=== PATIENT | male | born 1950 | race Caucasian/White ===

== ENCOUNTER 2018-04-17 17:41 | Outpatient (CLI) | payer MEDICARE, BC ==
--- NOTE | 2018-04-17 19:26 | RAD ---
CHEST: 04/17/18 PA and lateral views are submitted and compared with the prior study of 08/14/14 from [facility]. The heart is normal in size. There is no vascular congestion or effusions. No pulmonary masses or foc al pulmonary infiltrates were seen. The trachea is midline. The mediastinum appears normal. IMPRESSION: No significant finding. POS: HOME
== END 2018-04-17 17:42 | disposition home or self-care (01) ==
LOC: SCSRAD 17:41
PROVIDERS: ATTEND Family Medicine
DX: F17.200 Nicotine dependence, unspecified, uncomplicated (principal); R05 Cough; R63.4 Abnormal weight loss; R11.2 Nausea with vomiting, unspecified
CPT/HCPCS: 36415; 71046; 80053; 82378; 84153; 85025

== ENCOUNTER 2019-05-22 09:27 | Outpatient (CLI) | payer MEDICARE, BC ==
--- NOTE | 2019-05-22 10:23 | CT ---
EXAM: CT chest without contrast per low-dose cancer screening protocol HISTORY: History of smoking and nicotine dependence COMPARISON: None TECHNIQUE: Multiple contiguous axial images were obtained in a CT of the chest without contrast per l ow-dose cancer screening protocol. Sagittal and coronal reformats were performed. FINDINGS: Pulmonary nodules: There is a 4 mm nodule on image 130 of 260 in the right middle lobe. No other sign ificant pulmonary nodules are seen. A calcified granuloma is seen along the left major fissure. No focal infiltrates are seen. Emphysematous changes are seen in the lungs. Pleural space: No pneumothorax or pleural effusion are seen. Heart: The heart is normal in size. Mediastinum: No hilar or mediastinal lymphadenopathy appreciated on this limited noncontrast examinat ion. Bones: Degenerative changes in the spine.. Visualized subdiaphragmatic structures: Unremarkable. IMPRESSION: Lung RADS category 3-probably benign. A follow-up low-dose chest CT in 6 months is recommended to ens ure stability.
--- NOTE | 2019-05-22 12:28 | ULT ---
ABDOMINAL AORTIC ULTRASOUND: HISTORY: Abdominal aortic aneurysm screening. FINDINGS: Real-time imaging of the abdominal aorta was performed. This shows calcified plaque along the course of the aorta. Proximal measurements are 2.1 cm. The mid portion measures 1.7 and distally 1.4 cm. There is also moderate calcified plaque within the iliac arteries which are not aneurysmal. IMPRESSION: No evidence of aortic aneurysm. POS: [facility]
== END 2019-05-22 09:28 | disposition home or self-care (01) ==
LOC: ULT 09:27
PROVIDERS: ATTEND Nurse Practitioner Family
DX: Z13.6 Encounter for screening for cardiovascular disorders (principal)
CPT/HCPCS: 76775; G0297

== ENCOUNTER 2020-07-05 08:09 | Outpatient (CLI) | payer MEDICARE, BC ==
--- NOTE | 2020-07-05 08:51 | CT ---
CT pulmonary lung scan without IV contrast INDICATION: Lung cancer screening protocol; 69-year-old male with history of being a current smoker; the patient smokes 1 pack per day for 40 years. COMPARISON: Prior lung cancer screening CT evaluation dated May 22, 2019 FINDINGS: LUNGS: Nodules\mass: The 4.4 mm nodule within the right middle lobe lateral segment is stable. Small sub-4 m m superior lingular nodule is stable. No new pulmonary nodule is identified. Emphysema: Moderate centrilobular emphysema is stable. Additional findings: There are prominent coronary artery and thoracic aortic calcifications. No defin ite pathologically enlarged lymph nodes are evident. Mediastinum: No lymphadenopathy. Upper abdomen: There is a slightly enlarging 1.8 x 3.4 cm nodule involving the right adrenal gland we re previously measured 1.6 x 8.1 cm. Left adrenal gland is normal-appearing. Osseous structures: No acute abnormality.. IMPRESSION: Lung-RADS Category 2: Benign- Continue annual screening with LDCT in 12 months Category S: Enlarging right adrenal nodule. Recommend CT of the abdomen with and without contrast uti lizing adrenal mass protocol for additional characterization. Category C: Not applicable.
== END 2020-07-05 08:10 | disposition home or self-care (01) ==
LOC: BICCT 08:09
PROVIDERS: ATTEND Family Medicine
DX: Z12.2 Encounter for screening for malignant neoplasm of respiratory organs (principal); F17.210 Nicotine dependence, cigarettes, uncomplicated; E27.8 Other specified disorders of adrenal gland
CPT/HCPCS: G0297

== ENCOUNTER 2022-06-08 09:30 | Outpatient (CLI) | payer MEDICARE, BC | END 2022-06-08 09:31 | disposition home or self-care (01) | LOC: PET 09:30 | PROVIDERS: ATTEND Internal Medicine Pulmonary Disease | DX: R91.1 Solitary pulmonary nodule (principal); R91.8 Other nonspecific abnormal finding of lung field | CPT/HCPCS: 78815; A9552 ==

== ENCOUNTER 2022-08-16 10:44 | Outpatient (CLI) | payer MEDICARE, BC | END 2022-08-16 10:45 | disposition home or self-care (01) | LOC: TBSIIMAG 10:44 | PROVIDERS: ATTEND Anesthesiology Pain Medicine | DX: M48.062 Spinal stenosis, lumbar region with neurogenic claudication (principal); M47.816 Spondylosis without myelopathy or radiculopathy, lumbar region; M51.36 Other intervertebral disc degeneration, lumbar region; M51.26 Other intervertebral disc displacement, lumbar region | CPT/HCPCS: 72120; 72148 ==

== ENCOUNTER 2023-10-08 12:39 | Outpatient (CLI) | payer MEDICARE | END 2023-10-08 12:40 | disposition home or self-care (01) | LOC: SCSRAD 12:39 | PROVIDERS: ATTEND Physician Assistant | DX: R05.9 Cough, unspecified (principal); J98.4 Other disorders of lung | CPT/HCPCS: 71046 ==

== ENCOUNTER 2023-11-01 09:21 | Outpatient (CLI) | payer MEDICARE | END 2023-11-01 09:22 | disposition home or self-care (01) | LOC: SCSRAD 09:21 | PROVIDERS: ATTEND Physician Assistant | DX: R91.8 Other nonspecific abnormal finding of lung field (principal) | CPT/HCPCS: 71046 ==

== ENCOUNTER 2024-07-02 08:22 | Outpatient (CLI) | payer MEDICARE | END 2024-07-02 08:23 | disposition home or self-care (01) | LOC: BICCT 08:22 | PROVIDERS: ATTEND Internal Medicine Critical Care Medicine | DX: R91.8 Other nonspecific abnormal finding of lung field (principal); E27.8 Other specified disorders of adrenal gland | CPT/HCPCS: 71250 ==

== ENCOUNTER 2025-07-13 08:14 | Outpatient (CLI) | payer MEDICARE | END 2025-07-13 08:15 | disposition home or self-care (01) | LOC: BICCT 08:14 | PROVIDERS: ATTEND Internal Medicine Critical Care Medicine | DX: R91.8 Other nonspecific abnormal finding of lung field (principal); E27.8 Other specified disorders of adrenal gland | CPT/HCPCS: 71250 ==